=== PATIENT | female | born 1965 | race Caucasian/White ===

== ENCOUNTER → 2019-05-31 10:44 | Outpatient (CLI) | payer MEDICAID ==
--- NOTE | 2019-06-01 10:40 | ST ---
PATIENT:ARIELLA MAR MEDICAL RECORD: [id number] SEX: F LOCATION:[facility] ORDER #: ADMISSION DATE: 05/31/19 AGE OF PATIENT: 54 REFERRING PHYSICIAN: INTERPRETING PHYSICIAN: KEITH PERERA MD DATE OF SERVICE: 05/31/2019 Nuclear Stress Test INDICATIONS: Angina, diabetes. She was assessed standard Lexiscan protocol with 33 mCi of sestamibi injected at peak stress, 11 mCi used previously for rest images. FINDINGS: Gated SPECT reveals preserved ejection fraction at 72% with good wall motioning and thickening and brightening throughout all segments. SPECT Imaging: Cardiolite was used as myocardial perfusion agent. There are reversible changes throughout the inferior and apical segments. This includes the basal, mid, apical and inferior segments as well as the apex itself. Degree of reversibility is moderate. The amount of myocardium involved is moderate. OVERALL IMPRESSION: This is an intermediate-risk abnormal nuclear stress test, moderate amount of myocardium involved and reversibility inferiorly and apically. TRANSINT:[id number] Voice Confirmation ID: [id number] DOCUMENT ID: [id number] KEITH PERERA MD at 1040 CC: MARIA MARRERO MD [id number] DICTATION DATE: 05/31/19 1659 MECHANIC HELPER: 06/01/19 0529 [facility] CLI 05/31/19 [id number] [place] [address]
--- NOTE | 2019-06-02 13:04 | EC ---
PATIENT:ARIELLA MAR DATE OF SERVICE: 05/31/19 SEX: F MEDICAL RECORD: [id number] DATE OF : 69 LOCATION:D[facility] AGE OF PATIENT: 54 ADMISSION DATE: 05/31/19 REFERRING PHYSICIAN: INTERPRETING PHYSICIAN: JULES TAPIA MD ECHOCARDIOGRAM REPORT ECHO CHARGES 4 ECHO COMPLETE Date: 05/31/19 CLINICAL DIAGNOSIS: LARSON/ANGINA/ARRHYTHMIAS/SOB/ FATIGUE ECHOCARDIOGRAPHIC MEASUREMENTS (adult normal given) AC root (d.<3.7cm) 2.4 cm LV Septum d (<1.2 cm> 1.2 cm Valve Excursion 1.9 cm LV Septum (systole) 1.6 cm Left Atria (s.<4.0cm> 4.6 cm LVPW d(<1.2cm) 0.9 cm RV (d.<2.3cm) 3.0 cm LVPW (sytole) 1.7 cm LV diastole(<5.6CM) 5.5 cm MV E-F(>70mm/sec) cm LV systole 2.8 cm LVOT Diameter 2.0 cm MV exc.(>10mm) cm Est.ejection fraction (50-75%) % DOPPLER: LVIT cm/sec A 43.0 cm/sec E 90.0 cm/sec LA cm/sec RVSP 39.3 mmHg LVOT 103 cm/sec AOP1/2T m/s Asc. Ao 165 cm/sec RVOT 60.0 cm/sec RA cm/sec PA 107 cm/sec AV Gradient Peak 11.0 mmHg AV Mean 5.7 mmHg AV Area 2.2 cm MV Gradient Peak 4.9 mmHg MV Mean 1.6 mmHg MV Area cm COMMENTS: OP - HC Sales Analyst: 1 PAM SACHIN Garment Presser: 3 Dr. Daniel TAPE# PACS Pericardial Effusion N DATE OF SERVICE: Adequate 2D, color flow, spectral Doppler, M-Mode No LVH. LV internal dimension is normal. Wall motion is normal. EF is greater than or equal 50% to 55%. Aortic valve is tricuspid. No evidence of stenosis by Doppler interrogation. Left atrium is dilated at 4.6 cm. Mitral valve shows no prolapse. Trace MR. Right-sided chambers are grossly normal. Trace TR. TRANSINT:[id number] Voice Confirmation ID: [id number] DOCUMENT ID: [id number] ECHOCARDIOGRAM REPORT [id number] ARIELLA MAR,JULES Iyer MD at 1304 CC: [id number] DICTATION DATE: 06/01/19 150 REPAIRER WELDING SYSTEMS AND EQUIPMENT: 06/02/19 0043 DEP CLI 05/31/19 [place] [id number] [place] [id number]
== END | disposition home or self-care (01) ==
LOC: D.HCCECHO 05-04 09:30 → D.HCCARDIO 05-04 09:30
PROVIDERS: ATTEND Internal Medicine Interventional Cardiology
DX: R06.09 Other forms of dyspnea (principal); I20.9 Angina pectoris, unspecified

== ENCOUNTER 2019-06-19 10:37 | Outpatient (CLI) | payer MEDICAID ==
[~2019-06-19] VITALS: Ht 162.6 cm; Wt 122.7 kg
--- NOTE | ~2019-06-19 | HEMODYNAMI ---
PATIENT:ARIELLA MAR MEDICAL RECORD: [id number] : 69 LOCATION:[facility] ADMISSION DATE: 06/19/19 Generatedon:06/19/201913:34 Patient name: ARIELLA MAR Patient #: [id number] SSN : [id number] : 1965 Date of study: 06/19/2019 Page: Of Hemodynamic Procedure Report Patient Data Patient Demographics Procedure consent was obtained First Name: ARIELLA Gender: Female Last Name: ZAID : 1965 Middle Initial: MARJAN Age: 54 year(s) Patient #: [id number] Race: SSN: [id number] Additional ID: [id number] Contact details [address]: [address] [place] [address] State: [place] City: [place] Zip code: [address] Past Medical History Allergies Allergen Reaction Date Comments Reported Other allergy 06/19/2019 LATEX Admission Admission Data Admission Date: 06/19/2019 Admission Time: 10:37 Arrival Date: 06/19/2019 Arrival Time: 0:00 Admit Source: Other Insurance Payor: Private health insurance [facility] #: [id number] Height (in.): 64 BSA: 2.22 (m2) Height (cm.): 162.56 BMI: 46.44 (kg/m2) Weight (lbs.): 270.55 Weight (kg.): 122.72 Lab Results Lab Result Date: 06/19/2019 Lab Result Time: 0:00 Biochemistry Name Units Result Min Max BUN mg/dl 19 --(----)*- 7 18 Creatinine mg/dl 0.6 --(*---)-- 0.6 1.3 eGFR ml/min 90 --(*---)-- 90 120 NONAFRICAN CBC Name Units Result Min Max Hematocrit % 34.9 *-(----)-- 42 54 Hemoglobin g/dl 11.4 *-(----)-- 13.5 17.5 Procedure Procedure Types Cath Procedure Diagnostic Procedure [facility] w/Coronaries Sedation Charges Moderate Sedation up to 15 minutes Procedure Description Procedure Date Procedure Date: 06/19/2019 Procedure Start Time: 13:16 Procedure End Time: 13:32 Procedure Staff Name Function Hany Reed RN Nurse Keyona Deshpande RT Scrub Patricia Hernández RT Monitor Nasir Sevilla MD Performing Physician Indication Dyspnea with exertion Procedure Data Cath Procedure Fluoroscopy Diagnostic fluoroscopy Total fluoroscopy Time: 3.9 time: 3.9 min min Diagnostic fluoroscopy Total fluoroscopy dose: 432 dose: 432 mGy mGy Contrast Material Contrast Material Type Amount (ml) Isovue 370 73 Entry Location Entry Primary Successful Side Size Upsize Upsize Entry Closure Breen ccessful Closure Location (Fr) 1 (Fr) 2 (Fr) Remarks Device Remarks Radial Right 6 Fr Mechanical artery Short Compression Estimated blood loss: 5 ml Diagnostic catheters Device Type Used For End Catheter Placement DIAGNOSTIC [place] 110cm 5 Procedure Fr catheter ([id number]) DIAGNOSTIC JL 3.5 5Fr Procedure catheter ([id number]) Procedure Complications No complications Procedure Medications Medication Administration Route Dosage Oxygen etCO2 Nasal cannula 2 l/min Heparin Flush Bag added to field 2 bags (1000units/500ml NS) 0.9% NaCl I.V. 100 ml/hr Lidocaine 2% added to field 20 Radial Cocktail added to field 1 syringe (Verapamil 2mg/Nitro 400mcg/Heparin 1500units) Fentanyl I.V. 50 mcg Versed I.V. 1 mg Fentanyl I.V. 50 mcg Versed I.V. 1 mg Fentanyl I.V. 50 mcg Versed I.V. 1 mg Fentanyl I.V. 50 mcg Versed I.V. 1 mg Radial Cocktail I.A. 1 syringe (Verapamil 2mg/Nitro 400mcg/Heparin 1500units) Heparin Bolus I.V. 5000 units Hemodynamics Rest BSA: 2.22 (m2) HGB: 11.4 (g/dl) O2 Consumption: Estimated: 210.83 (ml/min) O2 Co nsumption indexed: Estimated:94.97 (ml/min/m) Heart Rate: 64 (bpm) Pressure Samples Time Site Value (mmHg) Purpose Heart Use Rate(bpm) 13:19 LV 99/31,28 Snapshot 72 Snapshots Pre Cath Intra NCS Post Cath Vital Signs Time Heart Resp SPO2 etCO2 NIBP (mmHg) Rhythm Pain Sedation Rate (ipm) (%) (mmHg) Status Level (bpm) 13:01:59 58 16 100 34.4 129/72(90) NSR (Missing) 10(A) 13:06:15 62 16 100 29.9 127/71(87) NSR (Missing) 10(A) 13:10:29 65 17 100 33.7 125/70(88) NSR (Missing) 10(A) 13:14:48 63 17 95 33.7 138/63(105) NSR (Missing) 10(A) 13:19:57 71 16 95 13.5 122/74(111) NSR (Missing) 9(A) 13:24:11 66 17 95 34.4 120/79(115) NSR (Missing) 9(A) 13:29:20 67 16 97 38.9 133/79(102) NSR (Missing) 9(A) 13:30:54 64 16 97 38.2 127/72(94) NSR (Missing) 9(A) Medications Time Medication Route Dose Verified Delivered Reason Not es Effectiveness by by 13:01:31 Oxygen etCO2 2 l/min Nasir Leach Per physician Nasal St Waylon Reed RN cannula 13:01:42 Heparin Flush added 2 bags Nasir Leach used for Bag to St Waylon Reed RN procedure (1000units/500ml field [place] NS) 13:01:52 0.9% NaCl I.V. 100 Nasir Leach Per physician ml/hr St Waylon Reed RN, MD 13:02:02 Lidocaine 2% added 20ml Nasir Leach for local to vial St Waylon Reed RN anesthetic field [place] 13:02:34 Radial Cocktail added 1 Nasir Leach used for (Verapamil to syringe [facility] Waylon Reed RN procedure 2mg/Nitro field [place] 400mcg/Heparin 1500units) 13:11:31 Fentanyl I.V. 50 mcg Nasir Leach for sedation St Waylon Reed RN, MD 13:11:38 Versed I.V. 1 mg Nasir Leach for sedation St Waylon Reed RN, MD 13:13:36 Fentanyl I.V. 50 mcg Nasir Leach for sedation St Waylon Reed RN, MD 13:13:39 Versed I.V. 1 mg Nasir Leach for sedation St Waylon Reed RN, MD 13:15:10 Fentanyl I.V. 50 mcg Nasir Leach for sedation St Waylon Reed RN, MD 13:15:14 Versed I.V. 1 mg Nasir Leach for sedation St Waylon Reed RN, MD 13:17:18 Fentanyl I.V. 50 mcg Nasir Leach for sedation St Waylon Reed RN, MD 13:17:20 Versed I.V. 1 mg Nasir Leach for sedation St Waylon Reed RN, MD 13:17:29 Radial Cocktail I.A. 1 Nasir Best for (Verapamil syringe DiWaylon Sevilla vasodilation 2mg/Nitro MD [place] 400mcg/Heparin 1500units) 13:25:44 Heparin Bolus I.V. [address] units [address] Waylon Reed RN anticoagulation Procedure Log Time Note 12:24:00 Informed consent obtained and on chart 12:24:10 Arrival Date: 06/19/2019 12:00:00 AM 12:24:11 Admit Source: Other 12:24:14 Insurance Payor : Private health insurance 12:24:36 Patient Height : 64 inches 12:24:45 Patient Weight : 270.55 lbs 12:25:24 Lab Result : eGFR NONAFRICAN 90 ml/min 12:25:24 Lab Result : Creatinine 0.6 mg/dl 12:25:24 Lab Result : BUN 19 mg/dl 12:25:24 Lab Result : Hematocrit 34.9 % 12:25:24 Lab Result : Hemoglobin 11.4 g/dl 12:26:26 Diagnostic Cath Status : Elective 12:27:05 Indication : Dyspnea with exertion 12:28:36 Procedure Status Elective Heart Cath (OP). 12:28:42 Plan of Care:Hemodynamics will remain stable., Cardiac rhythm will remain stable., Comfort level will be maintained., Respiratory function will remain adequate., Patient/ family verbilizes understanding of procedure., Procedure tolerated without complication., Recovers from procedure without complications.. 12:28:46 Time tracking: Regular hours (M-F 7:00 - 5:00) 12:29:23 Stress Test: yes; abnormal INFERIOR APICAL 12:29:29 Lab results completed and on chart. 12:31:55 Risk of Mortality: 0.1 12:31:58 Risk of blood transfusion: 2.2 12:32:01 Risk of ARCELIA: 2.5 12:41:28 Keyona Deshpande RT(R) sent for patient. Start room use. 12:55:04 Patient received from Pre/Post Procedure Room to CCL 3 Alert and oriented. Tansferred to table in Supine position. 12:55:20 Warm blankets applied, and keenan hugger turned on for patient comfort. 12:55:21 Correct patient and procedure confirmed by team. 12:55:22 Correct patient and procedure confirmed by team. 13:00:56 Vital chart was started 13:01:31 Oxygen 2 l/min etCO2 Nasal cannula was administered by Hany Reed RN; Per physician; Verbal order read back and verified. 13:01:42 Heparin Flush Bag (1000units/500ml NS) 2 bags added to field was administered by Hany Reed RN; used for procedure; Verbal order read back and verified. 13:01:52 0.9% NaCl 100 ml/hr I.V. was administered by Hany Reed RN; Per physician; Verbal order read back and verified. 13:02:02 Lidocaine 2% 20ml vial added to field was administered by Hany Reed RN; for local anesthetic; Verbal order read back and verified. 13:02:34 Radial Cocktail (Verapamil 2mg/Nitro 400mcg/Heparin 1500units) 1 syringe added to field was administered by Hany Reed RN; used for procedure; Verbal order read back and verified. 13:03:57 ECG and BP/O2 sat monitors applied to patient. 13:03:59 Baseline sample Acquired. 13:04:00 Full Disclosure recording started 13:04:03 Pre-procedure instructions explained to patient. 13:04:03 Pre-op teaching completed and patient verbalized understanding. 13:04:05 Family in waiting room. 13:04:07 Patient NPO since Midnight. 13:04:13 Patient allergic to No known allergies 13:04:21 Is the patient allergic to Iodine/contrast media? No. 13:04:22 Was the patient premedicated? Yes 13:04:23 Is patient on blood thinner?No 13:04:25 Patient diabetic? Yes. 13:04:27 If diabetic: On Metformin? Yes 13:04:33 If on Metformin: Last Dose? 06/18/2019 13:04:58 ----Pre-sedation anethsthesia assessment.---- 13:05:02 Previous problem with sedation/anesthesia? No ? 13:05:03 Snore? Yes 13:05:04 Sleep apnea? No 13:05:05 Deviated septum? No 13:05:06 Opens mouth fully? Yes 13:05:07 Sticks out tongue? Yes 13:05:09 Airway obstruction? No ? 13:05:12 Dentures? No ? 13:05:15 Pre procedure: right dorsailis pedis pulse 2+ Normal; easily identifiable; not easily obliterated 13:05:20 Modified Pablo's test Ulnar < 7 seconds 13:05:22 Patient pain scale 0/10 ?. 13:05:29 IV patent on arrival in left antecubital with 0.9% NaCl at [facility]. 13:05:35 Right Radial & Right Groin area was prepped with chlora-prep and draped in sterile fashion 13:05:37 Alarms reviewed by R. N. 13:05:38 Sharps counted by scrub and verified by R.N. 13:05:45 Use device set Radial Dx or PCI 13:05:46 ACIST Syringe (28888) opened to sterile field. 13:05:47 Medline Cath Pack ([id number]) opened to sterile field. 13:05:47 Bag Decanter (2002S) opened to sterile field. 13:05:48 ACIST Hand Control (78329) opened to sterile field. 13:05:49 ACIST Manifold (07998) opened to sterile field. 13:05:51 MBrace Wrist Support ([id number]) opened to sterile field. 13:05:53 EMERALD Guide Wire (461-677) opened to sterile field. 13:05:53 SHEATH 6FR RAIN (6519466) opened to sterile field. 13:06:06 Rhythm: sinus rhythm 13:07:37 Patient not . Patient has had hysterectomy. 13:11:14 --------ALL STOP TIME OUT------ 13:11:14 Final Timeout: patient, procedure, and site verified with staff and physician. All members of the team are in agreement. 13:11:17 Right Radial & Right Groin site verified by team. 13:11:21 Fire Safety Assessment: A--An alcohol-based skin anteseptic being used preoperatively., C--Open oxygen or nitrous oxide is being used., D--An ESU, laser, or fiber-optic light is being used. 13:11:27 Physical assessment completed. ASA score P 2 - A patient with mild systemic disease as per Nasir Sevilla MD. 13:11:31 Fentanyl 50 mcg I.V. was administered by Hany Reed RN; for sedation; Verbal order read back and verified. 13:11:31 1) 90+ Normal kidney functon but urine findings or structural abnormalities or genetic trait point to kidney disease. 13:11:33 Maximum allowable contrast dose (3.7 X eGFR X 0.75)250 ml. 13:11:38 Versed 1 mg I.V. was administered by Hany Reed RN; for sedation; Verbal order read back and verified. 13:11:38 Sedation plan: IV Moderate Sedation Medication:Versed, Fentanyl 13:12:02 Patient allergic to Other allergyLATEX 13:13:36 Fentanyl 50 mcg I.V. was administered by Hany Reed RN; for sedation; Verbal order read back and verified. 13:13:39 Versed 1 mg I.V. was administered by Hany Reed RN; for sedation; Verbal order read back and verified. 13:15:10 Fentanyl 50 mcg I.V. was administered by Hany Reed RN; for sedation; Verbal order read back and verified. 13:15:14 Versed 1 mg I.V. was administered by Hany Reed RN; for sedation; Verbal order read back and verified. 13:16:07 Procedure started. 13:16:14 Local anesthetic to right radial artery with Lidocaine 2% by Nasir Sevilla MD.INITIAL ACCESS ONLY 13:17:18 Fentanyl 50 mcg I.V. was administered by Hany Reed RN; for sedation; Verbal order read back and verified. 13:17:20 Versed 1 mg I.V. was administered by Hany Reed RN; for sedation; Verbal order read back and verified. 13:17:21 A 6 Fr Short sheath was inserted into the Right Radial artery 13:17:29 Radial Cocktail (Verapamil 2mg/Nitro 400mcg/Heparin 1500units) 1 syringe I.A. was administered by Nasir Sevilla MD; for vasodilation; Verbal order read back and verified. 13:18:19 A DIAGNOSTIC [place] 110cm 5 Fr catheter ([id number]) was advanced over the wire and used for Procedure. 13:18:33 Injector settings: Ml/sec: 5, Volume: 15, 13:18:37 LV gram done using GUSMAN 13:19:27 LV hemodynamics recorded. 13:19:36 EF : 55 % 13:20:33 RCA angiography performed. 13:21:07 Catheter removed. 13:21:24 A DIAGNOSTIC JL 3.5 5Fr catheter ([id number]) was advanced over the wire and used for Procedure. 13:23:16 LCA angiography performed. 13:24:16 Catheter removed. 13:25:32 WHISPER 300cm guide wire ([id number]) opened to sterile field. 13:25:33 GUIDE 6FR HS I SH catheter ([id number]) opened to sterile field. 13:25:34 INFLATOR Merit BasixCompak (NA9254) opened to sterile field. 13:25:41 Proceeding to intervention. 13:25:44 Heparin Bolus 5000 units I.V. was administered by Hany Reed RN; for anticoagulation; Verbal order read back and verified. 13:25:52 6 Fr HS 1 SH guide catheter was inserted over the wire 13:28:15 INSERTED GUIDE ARTERY SPASM SO NO FIX NECESSARY 13:28:37 Guide catheter removed. 13:28:48 Sheath removed intact; hemostasis achieved with Mechanical Compression to the Right Radial artery. 13:28:56 TR BAND Large ([id number]) opened to sterile field. 13:28:59 Procedure ended.(Physican Out) 13:29:23 Fluoroscopy time 03.90 minutes. 13:29:28 Fluoroscopy dose: 432 mGy 13:29:28 Flurop Dose total: 432 13:29:33 Dose Area Product 2927 mGy/cm. 13:29:38 Contrast amount:Isovue 370 73ml. 13:29:40 Maximum allowable dose exceeded? No. 13:29:42 Sharps counted by scrub and verified by R.N. 13:29:47 [place] band inflated with 10cc of air. 13:29:56 Post Procedure Pulses reassessed and unchanged 13:30:00 Post procedure: right dorsailis pedis pulse 2+ Normal; easily identifiable; not easily obliterated. 13:30:07 Post-procedure physical assessment completed. ASA score P 2 - A patient with mild systemic disease as per Nasir Di MD. 13:30:48 Post procedure rhythm: unchanged. 13:30:50 Estimated blood loss: 5 ml 13:30:51 Post procedure instruction explained to patient.Patient verbalizes understanding. 13:30:52 Patient needs reinforcement of post procedure teaching. 13:31:40 Procedure type changed to Cath procedure, Diagnostic procedure, LHC, LHC w/Coronaries, Sedation Charges, Moderate Sedation up to 15 minutes 13:31:46 Procedure Complication : No complications 13:31:51 LHC Findings: mild to moderate CAD (<70%) 13:31:54 Operative report dictated upon procedure completion. 13:31:55 See physician's report for complete and final results. 13:31:57 Report given to Pre/Post Procedure Room. 13:32:01 Patient transfered to Pre/Post Procedure Room with Stretcher. 13:32:03 Vital chart was stopped 13:32:35 Procedure ended. 13:32:35 Full Disclosure recording stopped 13:33:32 End room use (Document Last) Device Usage Item Name Manufacture Quantity Catalog Hospital Part Current Minima l Lot# / Number Charge Number Stock Stock Serial# Code ACIST Acist 1 39358 807094 707162 285056 20 Syringe Medical (71152) Systems Inc Medline Medline 1 [id number] 243599 29932 345901 5 Cath Pack ([id number]) Bag Microtek 1 930685 44793 465267 5 Decanter Medical Inc. () ACIST Hand Acist 1 21568 144857 423884 761636 5 Control Medical (36634) Systems Inc ACIST Acist 1 47450 773132 646116 384649 5 Manifold Medical (57310) Systems Inc MBrace Advanced 1 140-0250-00 047632 27788 790522 5 Wrist Vascular Support Dynamics (813742796) EMERALD Cardinal 1 502-455 858578 843074 884989 5 Guide Wire Health (660-455) SHEATH 6FR Cardinal 1 8739809 414262 0142419 503452 5 [facility] (0904892) DIAGNOSTIC Terumo 1 40-0666 283297 500902 092730 5 [place] 110cm 5 Fr catheter (683631) DIAGNOSTIC Cardinal 1 [id number] 795285 937460 389303 5 JL 3.5 5Fr Health catheter (915601A) WHISPER Castrejon 1 [id number] 998845 046914 595093 5 300cm guide Vascular wire (7521215AF) GUIDE 6FR Medtronic 1 [id number] 685796 49373 024499 1 HS I SH catheter (EX6AIIED) INFLATOR [facility] 1 [id number] 156738 210462 225894 15 [facility] Medical BasixCompak (LK3514) TR BAND Terumo 1 [id number] 485844 349900 135958 40 Large ([id number]) Signature Audit [place] Stage Time Signature Unsigned Intra-Procedure 06/19/2019 Patricia Hernández 1:33:12 PM RT(R) Intra-Procedure 06/19/2019 Hany Reed 1:33:32 PM RN Intra-Procedure 06/19/2019 Nasir Quezada 1:34:33 PM Waylon BOWDEN [facility] [address] [place] [address]
[2019-06-19] MEDS ORDERED: VITAMIN B-121000 MCG PO (10:55)
[2019-06-19] MEDS ORDERED: NITROSTAT0.4 MG SL (10:56)
[2019-06-19] MEDS ORDERED: GLUCOPHAGE850 MG PO (10:56)
[2019-06-19] MEDS ORDERED: OMEPRAZOLE20 M1 PO (10:57)
[2019-06-19] MEDS ORDERED: VITAMIN D31000 UNI2 PO (10:58)
[2019-06-19] MEDS ORDERED: TRAZODONE HCL150 MG PO (10:58)
[2019-06-19] MEDS ORDERED: POTASSIUM99 M1 PO (10:58)
[2019-06-19] MEDS ORDERED: BYSTOLIC5 MG PO (10:59)
[2019-06-19] MEDS ORDERED: PROBIOTIC250 MG PO (10:59)
[2019-06-19] MEDS ORDERED: BAYER ASPIRIN325 MG PO (10:59)
[2019-06-19 11:14] VITALS: BP 132/54; Ht 162.6 cm; Wt 122.7 kg
[2019-06-19 11:34] LABS: BASOPHILS 0.3 % (0-2); EOSINOPHILS 2.2 % (0-7); HEMATOCRIT 34.9 % (36.0-48.0); HEMOGLOBIN 11.4 g/dL (12-16); IMMATURE GRANULOCYTES 0.2 % (0-5); LYMPHOCYTES 22.3 % (15-50); MCH 26.5 pg (26.0-34.0); MCHC 32.7 g/dL (31.0-37.0); MCV 81.2 fL (80.0-100.0); MEAN PLATELET VOLUME 9.5 fL (7.4-10.4); MONOCYTES 8.1 % (2-11); NEUTROPHILS 66.9 % (40-80); PLATELET COUNT 239 10x3/uL (130-400); RDW 13.8 % (11.5-14.5); WBC 5.8 10x3/uL (4.8-10.8)
[2019-06-19 11:38] LABS: ALT (SGPT) 61 U/L (10-68); CALC OSMOLALITY 279 mosm/kg (275-300); CALCIUM 8.8 mg/dL (8.5-10.1); CARBON DIOXIDE 26.8 mmol/L (21.0-32.0); CHLORIDE - SERUM 104 mmol/L (98-107); CHOL - HDL RATIO 3.3 ratio (2.3-4.1); CHOLESTEROL, TOTAL 173 mg/dL (0-200); CREATININE - SERUM 0.6 mg/dL (0.6-1.3); GLUCOSE 106 mg/dL (74-106); HDL CHOLESTEROL 52 mg/dL (32-96); LDL CHOLESTEROL 105 mg/dL (0-100); POTASSIUM - SERUM 4.4 mmol/L (3.5-5.1); SODIUM 139 mmol/L (136-145); TRIGLYCERIDE 81 mg/dL (30-200); UREA NITROGEN 19 mg/dL (7-18); eGFR NON AFRICAN AMERICAN > 90 mL/min (90-120)
--- NOTE | 2019-06-19 13:45 | NUR ---
PT RECEIVED VIA STRETCHER FROM HAND CIGAR MAKING SUPERVISOR FOR RECOVERY. PT SLEEPING BUT VERBALLY AROUSABLE. PT DENIES PAIN OR DISCOMFORT. IV PATENT INFUSING VIA ORDERS TO R AC. PT PLACED ON CARDIAC MONITORS. HR NSR RATE 62, BP 110/57, SAT 100 ON ROOM AIR. R WRIST W TR BAND AND IMMOBILIZER, DRESSING CDI NO BLEEDING OR S/S HEMATOMA NOTED. ARM PINK AND WARM, CAP REFILL BRISK. PT INSTRUCTED NOT TO USE ARM, SHE VERBALIZED UNDERSTANDING. CALL LIGHT IN REACH, DAUGHTER AT BS.
--- NOTE | 2019-06-19 14:15 | NUR ---
PT RESTING W/O COMPLAINTS. R WRIST W/O BLEEDING OR S/S HEMATOMA. VSS. CAP REFILL BRISK. CALL LIGHT IN REACH, FAMILY AT BS.
--- NOTE | 2019-06-19 15:02 | NUR ---
3 ADD'L CC AIR REMOVED FROM TR BAND, NO BLEEDING OR S/S HEMATOMA NOTED. CAP REFILL BRISK. HOB ELEVATED AND SANDWICH TRAY SERVED. PT DENIES PAIN OR NEEDS. DR TAPIA WAS IN AND SPOKE W PT AND REGARDING PROCEDURE RESULTS AND PLAN OF CARE. CALL LIGHT IN REACH
--- NOTE | 2019-06-19 15:08 | HP ---
PATIENT: ARIELLA MAR MEDICAL RECORD: [id number] ACCOUNT: [id number] LOCATION:[facility] : 69 ADMISSION DATE: 06/19/19 PCP: MARIA MARRERO MD HISTORY AND PHYSICAL EXAMINATION HISTORY OF PRESENT ILLNESS: A 52-year-old female with a history of cardiac arrhythmias, diabetes mellitus, seen in the office with anginal symptomatology, underwent Cardiolite stress testing, which showed reversible ischemia in the inferior wall. She has been tried on beta blockade, both antiarrhythmic and antianginal difficulty, being brought in for diagnostic angiography. PAST MEDICAL HISTORY: 1. History of diabetes mellitus. 2. Hypertension. 3. Cardiac arrhythmias. 4. History of gastroesophageal reflux disease. PHYSICAL EXAMINATION: GENERAL: Pleasant female, in no acute distress. HEENT: Normocephalic, atraumatic. NECK: No JVD or bruit. HEART: Regular. LUNGS: Deshpande clear. ABDOMEN: Soft, nontender. EXTREMITIES: Pulse 2+. No edema. IMPRESSION: New onset angina, refractory medications with beta blockade, having tolerated calcium channel blockade. PLAN: For angiography, intervention based on above. TRANSINT:[id number] Voice Confirmation ID: [id number] DOCUMENT ID: [id number] JULES TAPIA MD at 1508 CC: [id number] DICTATION DATE: 06/19/19 1310 MICROBIOLOGY COORDINATOR: 06/19/19 1404 [facility] [address] [place] [address]
--- NOTE | 2019-06-19 15:25 | NUR ---
2 ADD'L CC AIR REMOVED FROM TR BAND, NO BLEEDING OR S/S HEMATOMA NOTED. PT C/O OF SLIGHT HEADACHE. DRINKING COFFEE THINKS THAT MIGHT BE THE REASON. VSS.
--- NOTE | 2019-06-19 15:53 | NUR ---
ORDERS RECEIVED FOR TYLENOL FOR C/O HEADACHE. 2 ES TYLENOL GIVEN. DISCHARGE INSTRUCTIONS REVIEWED W PT SHE VERBALIZED UNDERSTANDING. IV REMOVED W CATH INTACT, MONITORS REMOVED AND PT UP TO DRESS FOR DISCHARGE.
--- NOTE | 2019-06-19 16:05 | NUR ---
PT STATES HEADACHE IS GETTING BETTER.
--- NOTE | 2019-06-19 16:06 | NUR ---
REMAINING AIR AND TR BAND REMOVED W/O BLEEDING OR S/S HEMATOMA NOTED. 2X2 AND TEGADERM DRESSING APPLIED. IMMOBILIZER RE POSITIONED. PT AMBULATED TO BR, VOIDING W/O DIFFICULITY. 1610 PT DISCHARGED VIA WC TO WAITING IN PRIVATE VEHICLE. PT HAD ALL BELONGINGS AND DISCHARGE INFORMATION.
--- NOTE | 2019-06-21 10:02 | OP ---
PATIENT NAME: ARIELLA MAR MEDICAL RECORD: [id number] :69 LOCATION:D.CAT ADMISSION DATE: SURGEON: JULES TAPIA MD DATE OF OPERATION: 06/19/2019 PROCEDURE: Left heart catheterization, selective coronary angiography, right radial approach. CATHETERS: A 5-Citizen Of [place] sheath, 5/4 left and right Janet, 5/4 pig. The procedure was well tolerated. The patient returned to the maynard, sheath removed. TR band was placed. FINDINGS: Left ventriculography with 30-degree GUSMAN view: Normal wall motion and normal systolic function. CORONARY ANATOMY: LEFT MAIN: Left main is free of disease. LAD: Free of disease in the diagonal system. CIRCUMFLEX: Free of disease in the marginal system. RIGHT CORONARY ARTERY: Showed some catheter-induced spasm but no obstructive coronary artery disease. IMPRESSION: No obstructive coronary artery disease. Normal left ventricular function. TRANSINT:[id number] Voice Confirmation ID: [id number] DOCUMENT ID: [id number] JULES TAPIA MD at 1002 CC: [id number] DICTATION DATE: 06/19/19 1332 DRILLER'S ASSISTANT: 06/19/19 1933 DEP CLI 06/19/19 [facility] [address] [place] [address]
== END 2019-06-19 16:10 | disposition home or self-care (01) ==
LOC: D.CATH 10:37
PROVIDERS: ATTEND Internal Medicine Interventional Cardiology
DX: R07.9 Chest pain, unspecified (principal); R94.39 Abnormal result of other cardiovascular function study; I20.9 Angina pectoris, unspecified; R06.00 Dyspnea, unspecified; E11.9 Type 2 diabetes mellitus without complications; I49.9 Cardiac arrhythmia, unspecified; Z79.84 Long term (current) use of oral hypoglycemic drugs